=== PATIENT | female | born 1980 | race American Indian/Alaskan Native ===

== ENCOUNTER 2016-05-25 15:35 | Emergency (ER) | payer MEDICAID, OTHER ==
--- NOTE | 2016-05-25 16:26 | Emergency Department Report ---
Chief Complaint: Vaginal Bleeding Stated Complaint: 4 WKS PREG/HEAVY BLEEDING Time Seen by Provider: 05/25/16 16:25 - HPI History of Present Illness: Patient here reports that she is 5 weeks and started having abdominal cramping @8/10 and heavy vaginakl bleeding that started lastnight. She reports that she is saturating 1 pad/hour. was verified at [facility]. LMP 04/25/2016 - ROS Review of Systems: All systems are negative unless stated in HPI above - Exam Vital Signs: Vital Signs 05/25/16 16:04 Temperature 98.3 F Pulse Rate 104 H Respiratory 18 Rate Blood Pressure 110/76 O2 Sat by Pulse 100 Oximetry Physical Exam: Gen: 35 yo female well-nourished , well- developed in no acute distress CV: S1S2. tacchycardic at 104. reg. Rythm ABD: soft. TTP in pelvic area. NL bowel sounds. no cva tenderness MSE screening note: Focused history and physical exam performed. Due to findings the following was ordered:see mdm ED Medical Decision Making - Medical Decision Making MDM: Patient seen by provider in Triage Labs: Vaginal bleed protocol Diagnostics: ultrasound Patient to be seen by provider in main ed ED Disposition for MSE Condition: Stable
[2016-05-25 17:01] LABS: Eosinophils % (Auto) 0.8 % (0.0-4.3); Hematocrit 42.3 % (30.3-42.9); Hemoglobin 13.7 gm/dl (10.1-14.3); Mean Corpuscular HGB Conc 32 % (30-34); Mean Corpuscular Volume 79 fl (79-97); Platelet Count 280 K/mm3 (140-440); Red Blood Count 5.33 M/mm3 (3.65-5.03); Red Cell Distribution Width 13.9 % (13.2-15.2); White Blood Count 9.3 K/mm3 (4.5-11.0)
[2016-05-25 17:04] LABS: Mean Corpuscular Hemoglobin 26 pg (28-32)
[2016-05-25 18:43] LABS: Bilirubin,Urine NEG (Negative); Blood,Urine LG (Negative); Ketones,Urine NEG (Negative); Leukocyte Esterase,Urine NEG (Negative); Mucus,Urine 2+ /HPF; Nitrite,Urine NEG (Negative); Protein,Urine <15 mg/dL mg/dL (Negative); Urobilinogen,Urine < 2.0 mg/dL (<2.0)
--- NOTE | 2016-05-25 19:39 | Ultrasound Report ---
FINAL REPORT PROCEDURE: US OB TRANSVAGINAL and transabdominal TECHNIQUE: Real-time transabdominal and transvaginal sonography of the uterus, placenta, amniotic fluid, adnexa, and fetus was performed with image documentation. Measurements were obtained to determine age/size. M-mode Doppler was used to document heartbeat. CPT 53858 and 82295 HISTORY: vaginal bleed and cramping at 4 weeks COMPARISON: No prior studies are available for comparison. FINDINGS: ADDITIONAL GESTATION: None. Uterus measures 8.0 x 4.2 x 5.6 centimeters. Endometrium measures 12 millimeters in thickness. No intrauterine gestational sac is seen. Right Ovary: 1.5 centimeter complex cyst is present Left Ovary: Normal. No free fluid is seen. IMPRESSION: No intrauterine gestation is seen. Cannot exclude early or ectopic based on these images.
--- NOTE | 2016-05-25 19:40 | Ultrasound Report ---
FINAL REPORT PROCEDURE: US OB TRANSVAGINAL and transabdominal TECHNIQUE: Real-time transabdominal and transvaginal sonography of the uterus, placenta, amniotic fluid, adnexa, and fetus was performed with image documentation. Measurements were obtained to determine age/size. M-mode Doppler was used to document heartbeat. CPT 00226 and 36862 HISTORY: vaginal bleed and cramping at 4 weeks COMPARISON: No prior studies are available for comparison. FINDINGS: ADDITIONAL GESTATION: None. Uterus measures 8.0 x 4.2 x 5.6 centimeters. Endometrium measures 12 millimeters in thickness. No intrauterine gestational sac is seen. Right Ovary: 1.5 centimeter complex cyst is present Left Ovary: Normal. No free fluid is seen. IMPRESSION: No intrauterine gestation is seen. Cannot exclude early or ectopic based on these images. PROCEDURE: TECHNIQUE: HISTORY: COMPARISON: FINDINGS: IMPRESSION:
--- NOTE | 2016-05-25 23:13 | Emergency Department Report ---
ED Female HPI - General Chief complaint: Vaginal Bleeding Stated complaint: 4 WKS PREG/HEAVY BLEEDING Time Seen by Provider: 05/25/16 16:25 Source: patient, RN notes reviewed Mode of arrival: Ambulatory Limitations: No Limitations - History of Present Illness Initial comments: This is a 35-year-old female, previously unknown tonight. She is 4, para 4. Her [facility] doctor's Dr. Read. Presents to the ER complaining of abdominal cramping and vaginal bleeding. Symptoms started last night. No dizziness, with no lightheadedness. No chest pain or shortness of breath. Last menstrual period is 04/25/2016. Reports bleeding at least one pad per hour. MD Complaint: vaginal bleeding, pelvic pain -: Gradual Radiation: suprapubic Severity: mild Quality: cramping Consistency: intermittent Improves with: none Worsens with: none Associated Symptoms: vaginal bleeding. denies: vaginal discharge, nausea/ vomiting, fever/chills, headaches, loss of appetite, dysuria, hematuria, rash, seizure, shortness of breath, syncope, weakness - Related Data Sexually active: Yes Previous Rx's Medication Instructions Recorded Last Taken Type Cyclobenzaprine [Flexeril] 10 mg PO TID PRN #15 tablet 04/25/16 Unknown Rx Ibuprofen [Motrin 600 MG tab] 600 mg PO Q8H PRN #30 tablet 04/25/16 Unknown Rx Allergies Allergy/AdvReac Type Severity Reaction Status Date / Time No Known Allergies Allergy Unverified 07/24/15 11:08 ED Review of Systems ROS: Stated complaint: 4 WKS PREG/HEAVY BLEEDING Other details as noted in HPI Constitutional: denies: fever Eyes: denies: vision change ENT: denies: epistaxis Respiratory: denies: cough Gastrointestinal: as per HPI Genitourinary: abnormal menses. denies: urgency Musculoskeletal: as per HPI Skin: as per HPI Neurological: as per HPI. denies: weakness Psychiatric: denies: anxiety ED Past Medical Hx - Past Medical History Previous Medical History?: No Additional medical history: Vaginal delivery x 3 - Surgical History Past Surgical History?: No - Social History Smoking Status: Never Smoker Substance Use Type: None - Medications Home Medications: Home Medications Medication Instructions Recorded Confirmed Last Taken Type Cyclobenzaprine [Flexeril] 10 mg PO TID PRN #15 tablet 04/25/16 Unknown Rx Ibuprofen [Motrin 600 MG tab] 600 mg PO Q8H PRN #30 tablet 04/25/16 Unknown Rx ED Physical Exam - General Limitations: No Limitations General appearance: alert, in no apparent distress - Head Head exam: Present: atraumatic, normocephalic - Eye Eye exam: Present: normal appearance, EOMI. Absent: nystagmus - ENT ENT exam: Present: normal exam, normal orophraynx, mucous membranes moist - Neck Neck exam: Present: normal inspection - Respiratory Respiratory exam: Present: normal lung sounds bilaterally. Absent: respiratory distress, wheezes, rales, rhonchi, stridor, chest wall tenderness - Cardiovascular Cardiovascular Exam: Present: regular rate, normal rhythm, normal heart sounds. Absent: bradycardia, tachycardia, irregular rhythm, systolic murmur, diastolic murmur, rubs, gallop - GI/Abdominal GI/Abdominal exam: Present: soft, normal bowel sounds. Absent: distended, tenderness, guarding, rebound, rigid, pulsatile mass - External exam: Present: normal external exam Speculum exam: Present: vaginal bleeding Bi-manual exam: Present: normal bi-manual exam, other (escorted by TIM Duque). Absent: cervical motion tendernes, adnexal tenderness, adnexal mass - Extremities Exam Extremities exam: Present: normal inspection, full ROM, normal capillary refill. Absent: tenderness, pedal edema, joint swelling, calf tenderness - Back Exam Back exam: Present: normal inspection, full ROM. Absent: tenderness, CVA tenderness (R), CVA tenderness (L), muscle spasm, paraspinal tenderness, vertebral tenderness - Neurological Exam Neurological exam: Present: alert, oriented X3, normal gait, other (Extraocular movements intact. Tongue midline. No facial droop. Facial sensation intact to light touch in the V1, V2, V3 distribution bilaterally. 5 and 5 strength in 4 extremities.. Sensation is intact to light touch in 4 extremities.). Absent : motor sensory deficit - Psychiatric Psychiatric exam: Present: normal affect, normal mood - Skin Skin exam: Present: warm, dry, intact, normal color. Absent: rash ED Course Vital Signs 05/25/16 05/25/16 16:04 23:31 Temperature 98.3 F Pulse Rate 104 H 100 H Respiratory 18 17 Rate Blood Pressure 110/76 Blood Pressure 100/65 [Left] O2 Sat by Pulse 100 99 Oximetry - Reevaluation(s) Reevaluation #1: 05/25/16 23:39 Differential diagnosis: Early , early ectopic , miscarriage Assessment and plan: 35-year-old female with vaginal cramping, bleeding, spotting. Hemodynamically stable. Tachycardia resolved on my physical exam. She is afebrile with reassuring vital signs. Rh+. Hemoglobin and hematocrit stable. Quantitative hCG 8.63. Pelvic ultrasound demonstrates no intrauterine . She is reassuring, hemodynamically stable with a benign physical examination. She is instructed to return in 48 hours for repeat physical exam and quantitative hCG. She is reliable, she has family with her, bleeding precautions, return precautions are reviewed. She is instructed to avoid sexual activity. ED Medical Decision Making - Lab Data Result diagrams: 05/25/16 16:40 Vital Signs 05/25/16 05/25/16 16:04 23:31 Temperature 98.3 F Pulse Rate 104 H 100 H Respiratory 18 17 Rate Blood Pressure 110/76 Blood Pressure 100/65 [Left] O2 Sat by Pulse 100 99 Oximetry Lab Results 05/25/16 05/25/16 05/25/16 Range/Units 16:40 16:40 16:41 WBC 9.3 (4.5-11.0) K/mm3 RBC 5.33 H (3.65-5.03) M/mm3 Hgb 13.7 (10.1-14.3) gm/dl Hct 42.3 (30.3-42.9) % MCV 79 (79-97) fl MCH 26 L (28-32) pg MCHC 32 (30-34) % RDW 13.9 (13.2-15.2) % Plt Count 280 (140-440) K/mm3 Lymph % (Auto) 23.7 (13.4-35.0) % Gila % (Auto) 10.6 H (0.0-7.3) % Eos % (Auto) 0.8 (0.0-4.3) % Baso % (Auto) 1.0 (0.0-1.8) % Lymph # 2.2 (1.2-5.4) K/mm3 Gila # 1.0 H (0.0-0.8) K/mm3 Eos # 0.1 (0.0-0.4) K/mm3 Baso # 0.1 (0.0-0.1) K/mm3 Seg Neutrophils % 63.9 (40.0-70.0) % Seg Neutrophils # 5.9 (1.8-7.7) K/mm3 HCG, Quant 8.63 H (0-4) mIU/mL Urine Color (Yellow) Urine Turbidity (Clear) Urine pH (5.0-7.0) Ur Specific Slater (1.003-1.030) Urine Protein (Negative) mg/dL Urine Glucose (UA) (Negative) mg/dL Urine Ketones (Negative) mg/dL Urine Blood (Negative) Urine Nitrite (Negative) Urine Bilirubin (Negative) Urine Urobilinogen (<2.0) mg/dL Ur Leukocyte Esterase (Negative) Urine WBC (Auto) (0.0-6.0) /HPF Urine RBC (Auto) (0.0-6.0) /HPF U Epithel Cells (Auto) (0-13.0) /HPF Urine Mucus /HPF Blood Type A POSITIVE Antibody Screen Negative 05/25/16 Range/Units 18:26 WBC (4.5-11.0) K/mm3 RBC (3.65-5.03) M/mm3 Hgb (10.1-14.3) gm/dl Hct (30.3-42.9) % MCV (79-97) fl MCH (28-32) pg MCHC (30-34) % RDW (13.2-15.2) % Plt Count (140-440) K/mm3 Lymph % (Auto) (13.4-35.0) % Gila % (Auto) (0.0-7.3) % Eos % (Auto) (0.0-4.3) % Baso % (Auto) (0.0-1.8) % Lymph # (1.2-5.4) K/mm3 Gila # (0.0-0.8) K/mm3 Eos # (0.0-0.4) K/mm3 Baso # (0.0-0.1) K/mm3 Seg Neutrophils % (40.0-70.0) % Seg Neutrophils # (1.8-7.7) K/mm3 HCG, Quant (0-4) mIU/mL Urine Color Yellow (Yellow) Urine Turbidity Clear (Clear) Urine pH 6.0 (5.0-7.0) Ur Specific Slater 1.030 (1.003-1.030) Urine Protein <15 mg/dl (Negative) mg/dL Urine Glucose (UA) Neg (Negative) mg/dL Urine Ketones Neg (Negative) mg/dL Urine Blood Lg (Negative) Urine Nitrite Neg (Negative) Urine Bilirubin Neg (Negative) Urine Urobilinogen < 2.0 (<2.0) mg/dL Ur Leukocyte Esterase Neg (Negative) Urine WBC (Auto) 2.0 (0.0-6.0) /HPF Urine RBC (Auto) 47.0 (0.0-6.0) /HPF U Epithel Cells (Auto) 1.0 (0-13.0) /HPF Urine Mucus 2+ /HPF Blood Type Antibody Screen - Radiology Data Radiology results: report reviewed, image reviewed Transvaginal ultrasound demonstrates no intrauterine . No ectopic is identified either. Critical care attestation.: If time is entered above; I have spent that time in minutes in the direct care of this critically ill patient, excluding procedure time. ED Disposition Clinical Impression: Miscarriage Disposition: DISCHARGED TO HOME OR SELFCARE Is pt being admited?: No Does the pt Need Aspirin: No Condition: Stable Instructions: Threatened Miscarriage (ED), Ectopic (ED) Additional Instructions: Ultrasound did not demonstrate inside or outside the uterus. Quantitative hCG, which is the blood test was slightly elevated. Uncertain if you are experiencing a definite miscarriage versus early threatened miscarriage versus early , versus an ectopic . Rest and avoid heavy lifting. Avoid sex. Return in 2 days for a repeat physical exam and blood test. Follow up with her [facility] within next 7-10 days. Return to the ER right away with new pain, worsened pain, migration of pain, bleeding more than 2 pads soaked per hour, dizziness, lightheadedness, chest pain, shortness of breath, severe abdominal pain, loss of consciousness. Referrals: PRIMARY CAREMD [Primary Care Provider] - 3-5 Days CULLEN READ MD [Staff Physician] - 3-5 Days
[2016-05-25 23:31] VITALS: BP 100/65
== END 2016-05-25 23:45 | disposition home or self-care (01) ==
LOC: ED 15:35
DX: O03.9 Complete or unspecified spontaneous abortion without complication (principal); Z3A.00 Weeks of gestation of pregnancy not specified
CPT/HCPCS: 36415; 76801; 76817; 81001; 84702; 85025; 86850; 86900; 86901